=== PATIENT | female | born 1960 | race Caucasian/White ===

== ENCOUNTER 2018-08-19 08:48 | Day surgery (SDC) | payer BC ==
[~2018-08-19 08:48] MED LIST: CELECOXIB 100 MG CAPSULE PO ONE; FAMOTIDINE 20MG TABLET PO ONE; METOCLOPRAMIDE 10 MG TABLET PO ONE; SCOPOLAMINE 1 PATCH TDSY TD ONE; VANCOMYCIN 1GM/200ML PREMIX 1 GM/200 ML PIGGYBACK IVPB SCH
[2018-08-19] MEDS ORDERED: GLYCOPYRROLATE 0.2 MG/ML ML IV ONE (08:49)
[2018-08-19] MEDS ORDERED: ROPIVACAINE HCL (NAROPIN) /PF 5MG/ML 20ML VIAL IV ONE (08:49)
[2018-08-19] MEDS ORDERED: PROPOFOL 10 MG/ML VIAL IV ONE (08:49)
[2018-08-19] MEDS ORDERED: DEXAMETHASONE 4 MG/ML 1ML VIAL IVP ONE (08:49)
[2018-08-19] MEDS ORDERED: KETAMINE HCL 100MG/1ML VIAL INJ ONE (08:49)
[2018-08-19] MEDS ORDERED: MIDAZOLAM HCL 2MG/2ML VIAL IV ONE (08:49)
[2018-08-19] MEDS ORDERED: RINGERS SOLUTION,LACTATED 1,000 ML IV ONE ×2 (09:40→12:30)
[2018-08-19 09:45] LABS: ABO GROUP B; ANTIBODY SCREEN NEGATIVE (NEGATIVE); RH TYPE POSITIVE
[2018-08-19] MEDS: CEFAZOLIN 2 Gram 2 GM/50 ML BAG IVPB SCH ×5 (11:02→20:56)
[2018-08-19] MEDS ORDERED: BUPIVACAINE 0.5% W/EPI MPF 30 ML VIAL SQ ONE (12:16)
[2018-08-19] MEDS ORDERED: KETOROLAC 30 MG/ML VIAL IVP PRN ×2 (13:33)
[2018-08-19] MEDS ORDERED: DIPHENHYDRAMINE HCL 25 MG CAPSULE PO PRN (13:33)
[2018-08-19] MEDS ORDERED: HYDROMORPHONE HCL 2 MG/ML VIAL IM PRN (13:33)
[2018-08-19] MEDS ORDERED: NALOXONE 0.4 MG/1 ML VIAL IVP PRN (13:33)
[2018-08-19] MEDS ORDERED: HYDROCODONE/APAP 10/325 TABLET PO PRN (13:33)
[2018-08-19] MEDS ORDERED: BISACODYL 10 MG SUPP RC PRN (13:33)
[2018-08-19] MEDS ORDERED: AL HYDROX/MAG HYDROX 30ML UD PO PRN (13:33)
[2018-08-19] MEDS ORDERED: ZOLPIDEM TARTRATE 5 MG TABLET PO PRN (13:33)
[2018-08-19] MEDS ORDERED: MAGNESIUM HYDROXIDE 30 ML UDC PO PRN (13:33)
[2018-08-19] MEDS ORDERED: ACETAMINOPHEN 325 MG TAB PO PRN (13:33)
[2018-08-19] MEDS: POTASSIUM CHLORIDE/D5-0.9%NACL 20 MEQ/1,000 ML BAG IV SCH (16:08)
[2018-08-19] MEDS: TRAMADOL HCL 50 MG TABLET PO PRN (18:20)
[2018-08-19] MEDS: ONDANSETRON HCL IV 4 MG/2 ML VIAL IVP PRN (20:56)
[2018-08-19] MEDS ORDERED: TRAZODONE 50 MG TABLET PO SCH (22:00)
[2018-08-19] MEDS: DOCUSATE SODIUM 100 MG CAPSULE PO SCH (22:25)
[2018-08-19] MEDS: HYDROCODONE/APAP 10/325 TABLET PO PRN (22:25)
[2018-08-20] MEDS: HYDROCODONE/APAP 10/325 TABLET PO PRN ×3 (02:15→12:02)
[2018-08-20] MEDS: CEFAZOLIN 2 Gram 2 GM/50 ML BAG IVPB SCH ×3 (04:21→12:03)
[2018-08-20] MEDS: POTASSIUM CHLORIDE/D5-0.9%NACL 20 MEQ/1,000 ML BAG IV SCH (04:24)
[2018-08-20] MEDS ORDERED: PANTOPRAZOLE SODIUM 40 MG TABLET PO SCH (07:00)
[2018-08-20] MEDS ORDERED: LEVOTHYROXINE SODIUM 125 MCG TABLET PO SCH (07:00)
[2018-08-20 07:11] LABS: HEMATOCRIT 32.2 % (35.0-47.0); HEMOGLOBIN 10.2 gm/dl (11.6-16.0)
[2018-08-20 07:27] LABS: BLOOD UREA NITROGEN 12 mg/dL (6-20); CREATININE 0.9 mg/dL (0.5-0.9); EST GLOMERULAR FILTRATION RATE > 60 mL/min; GLUCOSE,RANDOM 126 mg/dL (74-109)
[2018-08-20] MEDS: DOCUSATE SODIUM 100 MG CAPSULE PO SCH (09:15)
[2018-08-20] MEDS: TRAMADOL HCL 50 MG TABLET PO PRN (09:15)
--- NOTE | 2018-08-20 09:58 | Rehab Evaluation ---
Patient Information - Patient Information Diagnosis: L knee OA Ordered Treatment: PT Evaluate and Treat Status: Initial Evaluation Surgery: Yes (L TKA) Date of Surgery: 08/19/18 Past Medical/Surgical Hx: PAST MEDICAL/SURGICAL HISTORY Past Surgical History TONSILS WISDOM TEETH LYMPH NODE EXCISION RIGHT CLAVICLE THYROIDECTOMY MIKAYLA C SECTIONS X'S 3 D AND C HYST LEFT KNEE SCOPE ABCESSED OVARY REMOVAL C SCOPE RIGHT RTC REPAIR PMH - Respiratory Hx Respiratory Disorders Yes Hx Pulmonary Embolism Yes: AFTER HYST 1996 Hx of SOB Yes: A LITTLE SINCE RIB INJURY Comment: INJURY TO RIGHT SIDE OF CHEST HAVING U/S TO CHECK ON POSSIBLE CRACKED RIB PMH - Cardiovascular Hx Cardiovascular Disorders Yes Hx Hypertension Yes: ON MEDS WITH GOOD CONTROL 132/74 Exercise Tolerance Fair PMH - Neuro Hx Neurological Disorders No PMH - GI Hx Gastrointestinal Disorders Yes Hx Gastroesophageal Reflux Yes: ON MEDS WITH GOOD CONTROL PMH - Hx Genitourinary Disorders No Comment: S/P HYST PMH - Endocrine Hx Endocrine Disorders Yes Hx Thyroid Disease Yes: THYROIDECTOMY DUE TO CYST ON MEDS PMH - Musculoskeletal Hx Musculoskeletal Disorders Yes Hx Arthritis Yes: KNEES AND HANDS Hx Fibromyalgia Yes PMH - Psych Hx Psychiatric Problems No PMH - Hematology/Oncology Hx Hematology/Oncology Yes Disorders Hx Bruising Yes: BRUISES EASILY Hx Clotting Problems Yes: "BLED OUT" W TONSILS HAS HAD VIT K BEFORE SOME SX'S. HX PE Comment: PT HAS NEVER SEEN HEMOTOLOGIST FOR BLEEDING ISSUE Premorbid Status: Detail (The patient was independent with all mobility prior to surgery.) Social History: Detail (The patient lives with spouse in a one story house with 3 steps at the enterance with one hand rail. The bathroom is equipped with: a walk in shower, shower bench, grab bars and an elevated toilet. No grab bars are present by toilet. The patient has a walker with wheels and standard cane.) Precautions: [place], Fall, Other (WBAT on the L LE.) - Time With Patient Total Time Spent With Patient (Min): 30 Treatment Procedures: Detail (Initial Evaluation, gait training) Subjective Information - Subjective Information Per Patient (The patient complained of L knee pain level 3 at the highest.) Objective Data - Mental Status Patient Orientation: Oriented x3 - Visual Perception Appears within normal limits for therapeutic activities - ROM Not within normal limits (The patient's L knee AROM is WFL. All other LE AROM is WNL.) - Strength/Tone Not within normal limits (The patient's L LE strength was not tested , however was functional. The patient's R LE strength was WFL.) - Bed Mobility Independent (The patient was independent with supine to and from sit and scooting up in bed.) - Transfers Independent (The patient was independent with sit to and from stand transfer.) - Balance Balance Sitting: Good Balance Standing: Good - Gait Detail (The patient ambulated with front wheeled walker WBAT on the L LE 108 feet x 1 independently. The patient ambulated on 3 stairs with supervision for safety using proper technique.) Therapy Assessment - Therapy Assessment Detail (The patient was independent with bed mobility, transfers and ambulation and is discharged form inpatient PT. The patient is to receive Home PT.) Patient Education - Patient Education Teaching Topic: Exercise/Activity (The patient completed all TKA exercises: quad sets, gluteal sets, hamstring sets, SLR, ankle pumps and seated heel slides.) Response: Return Demonstration Teaching Method: Discussion Teaching Recipient: Patient Barriers To Learning: Age Related Problem List - Problem List Physical Therapy Problem List: Detail ( Decreased L LE AROM and strength as to be expected following surgery) Goals - Goals Physical Therapy Goals: The patient has met all inpatient PT goals. Prognosis - Prognosis Good Plan - Plan Physical Therapy Plan: The patient is discharged from inpatient PT and is to continue with Home PT.
[2018-08-20] MEDS ORDERED: DULOXETINE HCL 30 MG CAPSULE.DR PO SCH (10:00)
[2018-08-20] MEDS ORDERED: METOPROLOL SUCC 25 MG TAB.ER PO SCH (10:00)
[2018-08-20] MEDS ORDERED: RIVAROXABAN 10 MG TABLET PO SCH (10:00)
[2018-08-20] MEDS ORDERED: FERROUS SULFATE 325 MG TAB PO SCH (10:00)
--- NOTE | 2018-08-20 11:42 | Rehab Evaluation ---
Patient Information - Patient Information Diagnosis: L knee OA Ordered Treatment: OT Evaluate and Treat Status: Initial Evaluation Surgery: Yes (L TKA) Date of Surgery: 08/19/18 Past Medical/Surgical Hx: PAST MEDICAL/SURGICAL HISTORY Past Surgical History TONSILS WISDOM TEETH LYMPH NODE EXCISION RIGHT CLAVICLE THYROIDECTOMY MIKAYLA C SECTIONS X'S 3 D AND C HYST LEFT KNEE SCOPE ABCESSED OVARY REMOVAL C SCOPE RIGHT RTC REPAIR PMH - Respiratory Hx Respiratory Disorders Yes Hx Pulmonary Embolism Yes: AFTER HYST 1996 Hx of SOB Yes: A LITTLE SINCE RIB INJURY Comment: INJURY TO RIGHT SIDE OF CHEST HAVING U/S TO CHECK ON POSSIBLE CRACKED RIB PMH - Cardiovascular Hx Cardiovascular Disorders Yes Hx Hypertension Yes: ON MEDS WITH GOOD CONTROL 132/74 Exercise Tolerance Fair PMH - Neuro Hx Neurological Disorders No PMH - GI Hx Gastrointestinal Disorders Yes Hx Gastroesophageal Reflux Yes: ON MEDS WITH GOOD CONTROL PMH - Hx Genitourinary Disorders No Comment: S/P HYST PMH - Endocrine Hx Endocrine Disorders Yes Hx Thyroid Disease Yes: THYROIDECTOMY DUE TO CYST ON MEDS PMH - Musculoskeletal Hx Musculoskeletal Disorders Yes Hx Arthritis Yes: KNEES AND HANDS Hx Fibromyalgia Yes PMH - Psych Hx Psychiatric Problems No PMH - Hematology/Oncology Hx Hematology/Oncology Yes Disorders Hx Bruising Yes: BRUISES EASILY Hx Clotting Problems Yes: "BLED OUT" W TONSILS HAS HAD VIT K BEFORE SOME SX'S. HX PE Comment: PT HAS NEVER SEEN HEMOTOLOGIST FOR BLEEDING ISSUE Premorbid Status: Detail (The patient was independent with all ADLs and mobility prior to surgery and driving.) Social History: Detail (The patient lives with spouse in a one story house with 3 steps at the entrance with one hand rail on the left side. The bathroom is equipped with a walk in shower, built-in shower bench, a grab bar and an elevated toilet. No grab bars are present by toilet. The patient has a wheeled walker and standard cane.) Precautions: [place], Fall, Other (WBAT L LE.) - Time With Patient Total Time Spent With Patient (Min): 20 (1 eval (10:03 - 12:23)) Treatment Procedures: Detail (OT eval: low complexity) Subjective Information - Subjective Information Per Patient (Ok to see per FROY Kern. Pt agreeable to OT eval.) Objective Data - Pain Pain Present: Yes Pain Scale Used: Numeric (1 - 10) (2/10) - Mental Status Patient Orientation: Oriented x3 - Visual Perception Appears within normal limits for therapeutic activities - ROM Within normal limits - Strength/Tone Within normal limits - Coordination Appears within normal limits for therapeutic activities - Bed Mobility Independent (supine >< EOB) - Transfers Independent (sit >< stand from low surfaces to FWW) - Balance Balance Sitting: Good Balance Standing: Good - Sensation Intact - Gait Detail (Functional mobility within bedroom with FWW and CGA progressing to MOD I.) - ADL's/IADL's Detail (OT educ. Pt on adaptive tech for LB dressing, Pt don/doffs socks, underwear, pants with MOD I, bra and shirt indep. Pt educ. Pt on modified techs for kitchen and bathroom safety at home, Pt verbalizes understanding, reports spouse will assist with tedhose and tennis shoes as needed.) Therapy Assessment - Therapy Assessment Detail (Pt demos safety and MOD I with LB dressing, verbalizes safe tech for home tasks with good safety awareness.) Patient Education - Patient Education Teaching Topic: Equipment Use, Exercise/Activity Response: Return Demonstration, Verbalize Understanding Teaching Method: Discussion, Demonstration Teaching Recipient: Patient Barriers To Learning: None Problem List - Problem List Physical Therapy Problem List: Detail ( Decreased L LE AROM and strength as to be expected following surgery) Occupational Therapy Problem List: Detail (No further IP OT needs identified.) Goals - Goals Physical Therapy Goals: The patient has met all inpatient PT goals. Occupational Therapy Goals: No further IP OT needs/goals identified. Prognosis - Prognosis Good Plan - Plan Physical Therapy Plan: The patient is discharged from inpatient PT and is to continue with Home PT. Occupational Therapy Plan: No further IP OT needs/goals identified. DC IP OT, rec. DC home with spouse assist as needed when medically ready. Thank you for this referral.
[2018-08-20] MEDS: ONDANSETRON HCL IV 4 MG/2 ML VIAL IVP PRN (11:49)
[2018-08-21] MEDS ORDERED: LEVOTHYROXINE SODIUM 25 MCG TABLET PO SCH (07:00)
[2018-08-21] MEDS ORDERED: LEVOTHYROXINE SOD 112 MCG TAB PO SCH (07:00)
--- NOTE | 2018-08-21 07:50 | Operative Note ---
DATE OF SURGERY: 08/19/2018 PREOPERATIVE DIAGNOSIS: End-stage arthrosis of the left knee. POSTOPERATIVE DIAGNOSIS: End-stage arthrosis of the left knee. OPERATION: Cemented left total knee arthroplasty using Castellanos and Nephew Sena II components with a size 5 Oxinium femur, a size 3 stem tibia baseplate, a 9 mm lipped highly crosslinked tibial insert, and a 32 mm all plastic patella. STAFF SURGEON: Fidel Singh MD ANESTHESIA: Spinal. PREPARATION: Chloraprep. INDIVIDUAL CONSIDERATIONS: None. PROCEDURE: The patient was taken to the operating room, placed supine on the operating room table. She had a successful induction of a spinal anesthetic. The left lower extremity was prepped and draped in the usual fashion. The patient had a midline approach to the knee. The limb was elevated and tourniquet was inflated to 250 mmHg. Sharp dissection carried down through skin and subcutaneous tissue. Small veins were coagulated with a Bovie. A medial arthrotomy was performed. The patella was everted and the knee was flexed. The patient had bone loss and exposed bone through experience in the medial and patellofemoral compartments. Large osteophytes. Fat pad was resected, ACL was sacrificed, and provisional anterior meniscectomies were performed. The capsule was released from the medial proximal tibia. The initial femoral pilot safety inspector hole was then made freehand. The intramedullary femoral cutting jig was placed. It was cut in 7.0 degrees of valgus and adjusted for rotation and secured with pins for a 10 mm resection. The initial transverse cut was then made. The skin guide was placed in the anterior and posterior pilot safety inspector holes. It was found that a size 5 would be appropriate although I had to translate it anteriorly 2 mm to get it to fit. The anterior and posterior cuts followed by chamfer cuts were made. Osteophytes removed, and a size 5 trial was placed and found to fit well. The tibia was brought forward, and the remainder of the meniscal remnants removed with a Bovie. The extraarticular tibial cutting jig was placed. It was cut in neutral with a 3-degree AP slope. It was set for a 9 mm resection and keyed off the high lateral side and secured with pins. When cutting the tibia, care was taken to preserve the PCL insertion on the tibia. Large osteophytes were removed, and a size 3 trial was found to fit well. It was adjusted for rotation and secured with pins. With a 9 mm trial and femoral trial, there was excellent motion and stability. The rotation alignment was thought to be intact as was ligamentous balance. The femoral pilot safety inspector holes were impacted and the tri- flange tibial stamp was impacted, and these trial components were removed. The patient had a relatively thin patella but compensating for bone loss and cartilage loss, I was able to just cut it and leave about 15 mm of bone remaining. The 3 pilot safety inspector holes for a 32 patella were drilled. The tourniquet was let down briefly to get bleeders posteriorly and then placed back up again. The knee was then thoroughly irrigated out with pulsatile Betadine and saline to remove any visual or palpable debris. Bony surfaces were then dried. A size 3 stem tibia baseplate was cemented into place followed by impaction of the 9 mm lipped tibial insert followed by cementing in the size 5 Oxinium femur followed by cementing in the 32 mm all plastic patella. The implant surfaces were compressed, excess cement was removed. After the cement had set, there was excellent motion and stability, ligamentous balance, rotation alignment, and patellofemoral tracking were normal. No lateral release was required. Again thorough irrigation. The skin, subcu, and periosteum were infiltrated with 30 mL of 0.5% Marcaine with epinephrine. The capsule was then closed with a running #2 quill, subcu was closed in layers with running 0 quill, skin was closed with evon. I mixed 30 mL of saline with 1 g of tranexamic acid. It was injected into the knee through a sterile 18-gauge needle, and a sterile bulky compressive dressing was applied. The patient tolerated the procedure well. Needle and sponge counts were correct. Estimated blood loss was minimal, and she was taken back to recovery in good condition. There were no complications MTDD
== END 2018-08-20 13:55 | disposition home or self-care (01) ==
LOC: SUR 08:48 → MEDSURG 14:28 → SUR 08-20 13:55
PROVIDERS: ATTEND Orthopaedic Surgery
DX: M17.12 Unilateral primary osteoarthritis, left knee (principal); I10 Essential (primary) hypertension; M79.7 Fibromyalgia; K21.9 Gastro-esophageal reflux disease without esophagitis; E03.9 Hypothyroidism, unspecified; Z86.711 Personal history of pulmonary embolism
CPT/HCPCS: 76942; 80048; 85014; 85018; 86850; 86900; 86901; C1776; J1885; J2405; J3480; J3490; J7120

== ENCOUNTER 2019-02-03 10:06 | Day surgery (SDC) | payer BC ==
[~2019-02-03 10:06] MED LIST changes: +CEFAZOLIN 2 Gram 2 GM/50 ML BAG IVPB ONE; +MECLIZINE 25 MG TABLET PO ONE; -SCOPOLAMINE 1 PATCH TDSY TD ONE; +VANCOMYCIN 1GM/200ML PREMIX 1 GM/200 ML PIGGYBACK IVPB ONE; -VANCOMYCIN 1GM/200ML PREMIX 1 GM/200 ML PIGGYBACK IVPB SCH
[2019-02-03] MEDS ORDERED: DEXAMETHASONE 4 MG/ML 1ML VIAL IVP ONE (10:07)
[2019-02-03] MEDS ORDERED: PROPOFOL 10 MG/ML VIAL IV ONE (10:07)
[2019-02-03] MEDS ORDERED: FENTANYL CITRATE/PF (PACU) 50 MCG/ML VIAL IV ONE (10:07)
[2019-02-03] MEDS ORDERED: ONDANSETRON HCL IV 4 MG/2 ML VIAL IVP ONE (10:07)
[2019-02-03] MEDS ORDERED: LIDOCAINE 2% MDV (20MG/ML) 20ML VIAL IV ONE (10:07)
[2019-02-03] MEDS ORDERED: RINGERS SOLUTION,LACTATED 1,000 ML IV ONE ×2 (10:40→14:44)
[2019-02-03 11:05] LABS: ABO GROUP B; RH TYPE POSITIVE
[2019-02-03 11:06] LABS: ANTIBODY SCREEN NEGATIVE (NEGATIVE)
[2019-02-03] MEDS ORDERED: MIDAZOLAM HCL 2MG/2ML VIAL IV ONE (11:43)
[2019-02-03] MEDS ORDERED: MIDAZOLAM HCL 2MG/2ML VIAL ONE (11:57)
[2019-02-03] MEDS ORDERED: TRANEXAMIC ACID 1,000 MG/10 ML ML IU ONE (14:28)
[2019-02-03] MEDS ORDERED: BUPIVACAINE 0.5% W/EPI MPF 30 ML VIAL SQ ONE (14:28)
[2019-02-03] MEDS ORDERED: TRANEXAMIC ACID 1,000 MG/10 ML ML IV ONE (14:28)
[2019-02-03] MEDS ORDERED: BISACODYL 10 MG SUPP RC PRN (15:29)
[2019-02-03] MEDS ORDERED: HYDROCODONE/APAP 10/325 TABLET PO PRN ×2 (15:29)
[2019-02-03] MEDS ORDERED: ONDANSETRON HCL IV 4 MG/2 ML VIAL IVP PRN (15:29)
[2019-02-03] MEDS ORDERED: ZOLPIDEM TARTRATE 5 MG TABLET PO PRN (15:29)
[2019-02-03] MEDS ORDERED: HYDROMORPHONE HCL 2 MG/ML VIAL IM PRN (15:29)
[2019-02-03] MEDS ORDERED: ACETAMINOPHEN W/ CODEINE 300MG/60MG TABLET PO PRN ×2 (15:29)
[2019-02-03] MEDS ORDERED: AL HYDROX/MAG HYDROX 30ML UD PO PRN (15:29)
[2019-02-03] MEDS ORDERED: MAGNESIUM HYDROXIDE 30 ML UDC PO PRN (15:29)
[2019-02-03] MEDS ORDERED: KETOROLAC 30 MG/ML VIAL IVP PRN (15:29)
[2019-02-03] MEDS ORDERED: DIPHENHYDRAMINE HCL 25 MG CAPSULE PO PRN (15:29)
[2019-02-03] MEDS ORDERED: TRAMADOL HCL 50 MG TABLET PO PRN (15:29)
[2019-02-03] MEDS ORDERED: NALOXONE 0.4 MG/1 ML VIAL IVP PRN (15:29)
[2019-02-03] MEDS: POTASSIUM CHLORIDE/D5-0.9%NACL 20 MEQ/1,000 ML BAG IV SCH (17:16)
[2019-02-03] MEDS: ACETAMINOPHEN 325 MG TAB PO PRN (19:36)
[2019-02-03] MEDS: CEFAZOLIN 2 Gram 2 GM/50 ML BAG IVPB SCH (21:19)
[2019-02-03] MEDS ORDERED: TRAZODONE 50 MG TABLET PO SCH (22:00)
[2019-02-03] MEDS: DOCUSATE SODIUM 100 MG CAPSULE PO SCH (22:44)
[2019-02-04] MEDS: POTASSIUM CHLORIDE/D5-0.9%NACL 20 MEQ/1,000 ML BAG IV SCH ×2 (01:30→09:15)
[2019-02-04] MEDS: CEFAZOLIN 2 Gram 2 GM/50 ML BAG IVPB SCH ×2 (06:22→13:25)
[2019-02-04] MEDS ORDERED: LEVOTHYROXINE SODIUM 125 MCG TABLET PO SCH (07:00)
[2019-02-04] MEDS ORDERED: PANTOPRAZOLE SODIUM 40 MG TABLET PO SCH (07:00)
[2019-02-04 07:04] LABS: HEMATOCRIT 32.9 % (35.0-47.0); HEMOGLOBIN 10.1 gm/dl (11.6-16.0)
[2019-02-04 07:28] LABS: BLOOD UREA NITROGEN 12 mg/dL (6-20); CREATININE 0.8 mg/dL (0.5-0.9); EST GLOMERULAR FILTRATION RATE > 60 mL/min; GLUCOSE,RANDOM 180 mg/dL (74-109)
[2019-02-04] MEDS: ACETAMINOPHEN 325 MG TAB PO PRN ×2 (08:55→12:21)
[2019-02-04] MEDS: DOCUSATE SODIUM 100 MG CAPSULE PO SCH (09:17)
[2019-02-04] MEDS ORDERED: RIVAROXABAN 10 MG TABLET PO SCH (10:00)
[2019-02-04] MEDS ORDERED: DULOXETINE HCL 30 MG CAPSULE.DR PO SCH (10:00)
[2019-02-04] MEDS ORDERED: METOPROLOL SUCC 25 MG TAB.ER PO SCH (10:00)
[2019-02-04] MEDS ORDERED: FERROUS SULFATE 325 MG TAB PO SCH (10:00)
--- NOTE | 2019-02-04 10:00 | Operative Note ---
DATE OF SURGERY: 02/03/2019 PREOPERATIVE DIAGNOSIS: End-stage arthrosis of the right knee. POSTOPERATIVE DIAGNOSIS: End-stage arthrosis of the right knee. OPERATION: Cemented right total knee arthroplasty using Castellanos and Nephew Legion components with a size 5 cruciate-retaining Oxinium femur, a size 3 stemmed tibia baseplate, a 9 mm lipped highly crosslinked tibial insert, and a 32 mm all-plastic patella. STAFF SURGEON: Fidel Singh MD ANESTHESIA: Spinal. PREPARATION: Chloraprep. INDIVIDUAL CONSIDERATIONS: None. MORGUE TECHNICIAN: Mrs. Cyndy Sal PROCEDURE: The patient was taken to the operating room, placed supine on the operating room table. She had a successful induction of a spinal anesthetic. The right lower extremity was prepped and draped in the usual fashion. The patient had a midline approach to the knee. Sharp dissection carried down through skin and subcutaneous tissue. Small veins were coagulated with a Bovie. A medial arthrotomy was performed. The patella was everted and the knee was flexed. The patient had exposed bone in the medial and patellofemoral compartments. Fat pad was resected, ACL was sacrificed, and provisional anterior meniscectomies were performed. The capsule was released from the medial proximal tibia. The initial femoral airplane pilot supervisor hole was then made freehand. The intramedullary femoral cutting jig was placed. It was cut in 7.0 degrees of valgus and adjusted for rotation and secured with pins for a 10 mm resection. The initial transverse cut was then made. The skin guide was placed in 3 degrees of external rotation and the airplane pilot supervisor holes were drilled. It was found that a size 5 would be appropriate. The anterior and posterior cuts followed by chamfer cuts were made. Osteophytes removed, and a size 5 trial was placed and found to fit well. The tibia was brought forward, and the remainder of the meniscal remnants removed with a Bovie. The extraarticular tibial cutting jig was placed. It was cut in neutral with a 3-degree AP slope. It was set for a 9 mm resection keyed off the high lateral side and secured with pins. When cutting the tibia, care was taken to preserve the PCL insertion on the tibia. Large medial osteophytes were removed, and I could fit a size 3 baseplate. It was adjusted for rotation and secured with pins. With a 9 mm trial and femoral trial, there was excellent motion and stability. Ligamentous balance and rotation alignment were thought to be normal. Femoral airplane pilot supervisor holes were impacted and tibial keel stamp was impacted, and these trial components were removed. The tourniquet was let down briefly to get bleeders posteriorly and then placed back up again. The knee was then thoroughly irrigated out with pulsatile Betadine and saline to remove any visual or palpable debris. Bony surfaces were then dried. A size 3 stemmed tibia baseplate was cemented into place followed by impaction of the 9 mm lipped highly crosslinked tibial insert followed by cementing in the size 5 Oxinium femur followed by cementing in the 32 mm all- plastic patella. It should be noted that I did do a patella cut prior to cementing taking just a few millimeters of bone to compensate for bone loss, and I did drill the 3 airplane pilot supervisor holes for the patella. The implant surfaces were compressed, excess cement was removed. After the cement had set, there was excellent motion and stability. Ligamentous balance, rotation alignment, and patellofemoral tracking were normal. No lateral release was required. Tourniquet was let down. Hemostasis was obtained with a Bovie. The skin, subcu, and periosteum were then infiltrated with 30 mL of 0.5% Marcaine with epinephrine. The capsule was then closed with a running #2 quill, subcu was closed in layers with running 0 quill, skin was closed with evon. The patient did receive 1 g of tranexamic acid preoperatively. I mixed 1 g of tranexamic acid with 30 mL of saline and injected into the knee through a sterile 18-gauge needle, and a sterile bulky compressive VAMSHI-type dressing was applied. The patient tolerated the procedure well. Needle and sponge counts were correct. Estimated blood loss was minimal, and he was taken back to recovery in good condition. There were no complications. MOIRA
--- NOTE | 2019-02-04 10:53 | Rehab Evaluation ---
Patient Information - Patient Information Diagnosis: DJD R knee Ordered Treatment: PT Evaluate and Treat Status: Initial Evaluation Surgery: Yes (R TKA) Date of Surgery: 02/03/19 Past Medical/Surgical Hx: PAST MEDICAL/SURGICAL HISTORY Past Surgical History LTKA 08-19-18 TONSILS WISDOM TEETH LYMPH NODE EXCISION RIGHT CLAVICLE THYROIDECTOMY MIKAYLA C SECTIONS X'S 3 D AND C HYST LEFT KNEE SCOPE ABCESSED OVARY REMOVAL C SCOPE RIGHT RTC REPAIR PMH - Respiratory Hx Respiratory Disorders Yes Hx Pulmonary Embolism Yes: AFTER HY1996 Hx of SOB Yes: A LITTLE SINCE RIB INJURY Comment: INJURY TO RIGHT SIDE OF CHEST HAVING U/S TO CHECK ON POSSIBLE CRACKED RIB PMH - Cardiovascular Hx Cardiovascular Disorders Yes Hx Hypertension Yes: ON MEDS WITH GOOD CONTROL 132/74 Exercise Tolerance Good PMH - Neuro Hx Neurological Disorders No PMH - GI Hx Gastrointestinal Disorders Yes Hx Gastroesophageal Reflux Yes: ON MEDS WITH GOOD CONTROL PMH - Hx Genitourinary Disorders No Comment: S/P HYST PMH - Endocrine Hx Endocrine Disorders Yes Hx Thyroid Disease Yes: THYROIDECTOMY DUE TO CYST ON MEDS PMH - Musculoskeletal Hx Musculoskeletal Disorders Yes Hx Arthritis Yes: KNEES AND HANDS Hx Fibromyalgia Yes PMH - Psych Hx Psychiatric Problems No PMH - Hematology/Oncology Hx Hematology/Oncology Yes Disorders Hx Bruising Yes: BRUISES EASILY Hx Clotting Problems Yes: "BLED OUT" W TONSILS HAS HAD VIT K BEFORE SOME SX'S. HX PE Comment: PT HAS NEVER SEEN HEMOTOLOGIST FOR BLEEDING ISSUE Premorbid Status: Detail (The patient was independent with all mobility prior to surgery.) Social History: Detail (The patient lives with spouse and daughter in a one story house with 3 steps at the enterance and one hand rail. The bathroom is equipped with a walk in shower with shower bench and an elevated toilet. There are no grab bars in the bathroom. The patient has a front wheeled walker and standard point cane.) Precautions: [place], Fall, Other (WBAT on the R LE.) - Time With Patient Total Time Spent With Patient (Min): 30 Treatment Procedures: Detail (Initial Evaluation low complexity.) Subjective Information - Subjective Information Per Patient (The patient had no complaints of pain just "pressure" in R patella.) Objective Data - Mental Status Patient Orientation: Oriented x3 - Visual Perception Appears within normal limits for therapeutic activities - ROM Not within normal limits (The patient's R knee AROM was limited s/p surgery. All other AROM was WNL.) - Strength/Tone Not within normal limits (The patient's LE strength was not tested with resistance following surgery however was functional.) - Bed Mobility Independent (The patient was indpendent with scooting up in bed and with supine to and from sit transfer.) - Transfers Independent (The patient was independent with sit to and from stand transfer and with toilet transfer.) - Balance Balance Sitting: Good Balance Standing: Good - Sensation Intact - Gait Detail (The patient ambulated with front wheeled walker a distance off 200 feet x 1 independently WBAT on the R LE. The patient ambulated on 3 steps with folded walker and one railing using proper technique with supervision for safety. The patient's daughter was present and observed pt. ambulating on stairs.) Therapy Assessment - Therapy Assessment Detail (The patient was independent with bed mobility, transfers and ambulation. The patient has met all inpt. goals and is discharged from inpt. PT.) Patient Education - Patient Education Teaching Topic: Exercise/Activity (The patient completed TKA HEP which included seated and supine heel slides, ankle pumps, quad sets, hamstring sets, SLR, gluteal sets.) Response: Return Demonstration Teaching Method: Demonstration, Handout Teaching Recipient: Patient Barriers To Learning: None Problem List - Problem List Physical Therapy Problem List: Detail (Decreased R knee AROM and R LE strength as to be expected following surgery.) Goals - Goals Physical Therapy Goals: The patient has met all inpt. PT goals. Plan - Plan Physical Therapy Plan: The patient is discharged from inpt. PT and is to receive Home PT.
== END 2019-02-04 17:15 | disposition home health service (06) ==
LOC: SUR 10:06 → MEDSURG 16:32 → SUR 02-04 17:15
PROVIDERS: ATTEND Orthopaedic Surgery
DX: M17.11 Unilateral primary osteoarthritis, right knee (principal); I10 Essential (primary) hypertension; M79.7 Fibromyalgia
CPT/HCPCS: 76942; 80048; 85014; 85018; 86850; 86900; 86901; C1776; J2405; J3370; J3480; J7120